=== PATIENT | male | born 1940 | race Caucasian/White ===

== ENCOUNTER 2017-05-02 10:31 | Day surgery (SDC) | payer MEDICARE, BC ==
[~2017-05-02 10:31] MED LIST: Acetaminophen TAB* 325 MG PO PRN; Buffered Lidocaine 0.9% SYRIN* 5 ML/SYR SYRINGE INTRADERM ONE
[2017-05-02] MEDS ORDERED: Phenylephrine 2.5% OPTH.SOL* 2 ML BTL ONE (10:47)
[2017-05-02] MEDS ORDERED: Buffered Lidocaine 0.9% SYRIN* 5 ML/SYR SYRINGE ONE (10:47)
[2017-05-02] MEDS ORDERED: Cyclopentolate 1% OPTH.SOL* 2 ML BTL ONE (10:47)
[2017-05-02] MEDS ORDERED: Povidone Iodine 5% OPTH* 30 ML BTL ONE (10:47)
[2017-05-02] MEDS ORDERED: acetaZOLAMIDE TAB* 250 MG ONE (10:47)
[2017-05-02] MEDS ORDERED: Neomycin/Polymy/Dex OPTH.SUSP* MAXITROL 0.1% 5 ML ONE (10:47)
[2017-05-02] MEDS ORDERED: Lidocaine 2% EPI 1:200000 MPF* 20 ML VIAL ONE (10:47)
[2017-05-02] MEDS ORDERED: Flurbiprofen 0.03% OPTH.SOL* 2.5 ML BTL ONE (10:47)
[2017-05-02] MEDS ORDERED: Lidocaine 1% MPF* 2 ML VIAL ONE (10:47)
[2017-05-02] MEDS ORDERED: Proparacaine 0.5% OPHTH.SOL* 15 ML BTL ONE (10:47)
[2017-05-02] MEDS ORDERED: Midazolam* 1 MG/ML 2 ML VIAL (2 MG) ONE (12:04)
[2017-05-02 13:12] VITALS: BP 117/67
--- NOTE | 2017-05-02 14:38 | OP ---
DATE OF OPERATION: 05/02/2017 - [facility] DATE OF : 1940. SURGEON: Vin Nava M.D. PREOPERATIVE DIAGNOSIS: Cataract left eye. POSTOPERATIVE DIAGNOSIS: Cataract left eye. OPERATIVE PROCEDURE: Phacoemulsification left eye with IOL. DESCRIPTIO OF PROCEDURE: The patient was brought to the operating room after being given 1/2% Alcaine with epinephrine drops in the preoperative area. The eye was prepped and draped in the usual sterile fashion. Sterile drape and eyelid speculum were placed. Again, topical 1/2% Alcaine with epinephrine was given. A paracentesis incision was made at the 3 o'clock position with the No.75 blade. Clear cornea incision 2.2 x 2.2-mm was created at the 6 o'clock position starting at the anterior limbus using the 2.2-mm keratome. The anterior chamber was irrigated with 0.4 mL of 1% non-preservative intracameral lidocaine and filled with DisCoVisc. A capsulorrhexis was completed using the cystotome and the Utrata forceps. Hydrodissection was performed with balanced salt solution. The lens nucleus was removed with the Phacoemulsification handpiece without incident. Cortex was removed with the irrigation-aspiration handpiece. The capsular bag was re-inflated using DisCoVisc and an [id number] 28 implant was inserted with the shooter. His pupil was only at 2 mm, so a Malyugin ring was placed prior to capsulorrhexis and removed after insertion of the lens. The irrigation-aspiration handpiece was used to remove all residual DisCoVisc. The eye was refilled with balanced salt solution and the wound checked and found to be watertight. Topical Maxitrol drops were given. Indication for complex cataract surgery: Iris abnormalities requiring pupil dilation device. [id number] #: [id number] #: [id number] RAMYA
== END 2017-05-02 13:14 | disposition home or self-care (01) ==
LOC: OREAST 10:31
PROVIDERS: ATTEND Specialist
DX: H26.9 Unspecified cataract (principal); Z79.82 Long term (current) use of aspirin; Z88.0 Allergy status to penicillin; I10 Essential (primary) hypertension
CPT/HCPCS: A9270-GY; J2250; V2632

== ENCOUNTER 2017-05-09 09:10 | Day surgery (SDC) | payer MEDICARE, BC ==
[~2017-05-09 09:10] MED LIST changes: +Buffered Lidocaine 0.9% SYRIN* 5 ML/SYR SYRINGE ONE; +Cyclopentolate 1% OPTH.SOL* 2 ML BTL ONE; +Ketorolac 0.5% OPHTH (NF) 0.5 % 5 ML BTL ONE; +Lidocaine 1% MPF* 2 ML VIAL ONE; +Lidocaine 2% EPI 1:200000 MPF* 20 ML VIAL ONE; +Neomycin/Polymy/Dex OPTH.SUSP* MAXITROL 0.1% 5 ML ONE; +Phenylephrine 2.5% OPTH.SOL* 2 ML BTL ONE; +Povidone Iodine 5% OPTH* 30 ML BTL ONE; +Proparacaine 0.5% OPHTH.SOL* 15 ML BTL ONE; +acetaZOLAMIDE TAB* 250 MG ONE
[2017-05-09] MEDS ORDERED: Midazolam* 1 MG/ML 2 ML VIAL (2 MG) ONE (11:14)
[2017-05-09] MEDS ORDERED: fentaNYL* 50 MCG/ML 2 ML VIAL (100 MCG VIAL) ONE (11:19)
--- NOTE | 2017-05-09 12:24 | OP ---
DATE OF OPERATION: 05/09/2017. DATE OF : 1940. SURGEON: Vin Nava M.D. PREOPERATIVE DIAGNOSIS: Cataract right eye. POSTOPERATIVE DIAGNOSIS: Cataract right eye. OPERATIVE PROCEDURE: Phacoemulsification right eye with IOL. PROCEDURE: The patient was brought to the operating room after being given 1/2% Alcaine with epinep hrine drops in the preoperative area. The eye was prepped and draped in the usual sterile fashion. Sterile drape and eyelid speculum were placed. Again, topical 1/2% Alcaine with epinephrine was gi lorena. A paracentesis incision was made at the 9 o'clock position with the No.75 blade. Clear cornea incision 2.2 x 2.2-mm was created at the 12 o'clock position starting at the anterior limbus using the 2.2-mm keratome. The anterior chamber was irrigated with 0.4 mL of 1% non-preservative intracam eral lidocaine and filled with DisCoVisc. A capsulorrhexis was completed using the cystotome and lisa e Utrata forceps. Hydrodissection was performed with balanced salt solution. The lens nucleus was r emoved with the Phacoemulsification handpiece without incident. Cortex was removed with the irrigat ion-aspiration handpiece. The capsular bag was re-inflated using DisCoVisc and an SN60WF 25.5 Impla nt was inserted with the shooter. A Malyugin ring was used to dilate the pupil prior to capsulorrhe xis and removed after insertion of the lens. The irrigation-aspiration handpiece was used to remove all residual DisCoVisc. The eye was refilled with balanced salt solution and the wound checked and found to be watertight. Topical Maxitrol drops were given. Indication for complex cataract surgery: Iris abnormalities requiring pupil dilation device. [id number]/[facility] #: [id number]
[2017-05-09 12:45] VITALS: BP 119/84
== END 2017-05-09 12:01 | disposition home or self-care (01) ==
LOC: OREAST 09:10
PROVIDERS: ATTEND Specialist
DX: H25.11 Age-related nuclear cataract, right eye (principal); Q13.2 Other congenital malformations of iris; Z87.891 Personal history of nicotine dependence; I10 Essential (primary) hypertension
CPT/HCPCS: A9270-GY; J2250; J3010; V2632